=== PATIENT | male | born 1960 | race American Indian/Alaskan Native ===

== ENCOUNTER 2019-05-17 11:28 | Emergency (ER) | payer MEDICAID ==
[2019-05-17 11:35] VITALS: BP 122/89
--- NOTE | 2019-05-17 11:38 | Event Note ---
ED Screening Note Date of service: 05/17/19 Time: 11:35 ED Screening Note: This is a 58 y.o. M. that presents to the ER with n/v and dizziness since last night. Reports a headache Patient reports smoking a different brand cigarette last night and started feeling sick while smoking. This initial assessment/diagnostic orders/clinical plan/treatment(s) is/are subject to change based on patients health status, clinical progression and re- assessment by fellow clinical providers in the ED. Further treatment and workup at subsequent clinical providers discretion. Patient/guardian urged not to elope from the ED as their condition may be serious if not clinically assessed and managed. Initial orders include: Labs
[2019-05-17] MEDS ORDERED: ZOFRAN IV ONE (11:59)
[2019-05-17] MEDS ORDERED: NACL 0.9% 1000 ML 1,000 ML IV ONE (11:59)
[2019-05-17] MEDS ORDERED: ANTIVERT PO ONE (11:59)
[2019-05-17 12:20] LABS: Basophils % (Auto) 0.7 % (0.0-1.8); Eosinophils # (Auto) 0.1 K/mm3 (0.0-0.4); Hematocrit 44.2 % (35.5-45.6); Hemoglobin 14.8 gm/dl (11.8-15.2); Lymphocytes # (Auto) 1.1 K/mm3 (1.2-5.4); Lymphocytes % (Auto) 27.4 % (13.4-35.0); Mean Corpuscular HGB Conc 34 % (32-34); Mean Corpuscular Volume 91 fl (84-94); Monocytes # (Auto) 0.4 K/mm3 (0.0-0.8); Monocytes % (Auto) 10.3 % (0.0-7.3); Platelet Count 272 K/mm3 (140-440); Red Blood Count 4.85 M/mm3 (3.65-5.03); Red Cell Distribution Width 14.1 % (13.2-15.2)
[2019-05-17 12:42] LABS: Alanine Aminotransferase 20 units/L (7-56); Albumin 3.6 g/dL (3.9-5); BUN/Creatinine Ratio 7; Blood Urea Nitrogen 8 mg/dL (9-20); Calcium 8.7 mg/dL (8.4-10.2); Hemolysis Index 16
--- NOTE | 2019-05-17 14:41 | Cat Scan Report ---
CT HEAD WITHOUT CONTRAST INDICATION: vertigo with unsteady gait. TECHNIQUE: All CT scans at this location are performed using CT dose reduction for ALARA by means of automated e xposure control. COMPARISON: None available. FINDINGS: HEMORRHAGE: None. EXTRA-AXIAL SPACES: Normal in size and morphology for the patient's age. VENTRICULAR SYSTEM: Normal in size and morphology for the patient's age. BRAIN PARENCHYMA: No acute findings. MIDLINE SHIFT OR HERNIATION: None. ORBITS: Normal as visualized. SOFT TISSUES OF HEAD: Normal. CALVARIUM: Normal. VISUALIZED PARANASAL SINUSES AND MASTOID AIR CELLS: Clear. ADDITIONAL FINDINGS: None. IMPRESSION: 1. No acute intracranial abnormality. Signer Name: Ronaldo Ribera MD Signed: 05/17/2019 2:36 PM Workstation Name: [id number]
--- NOTE | 2019-05-17 15:22 | Emergency Department Report ---
ED General Adult HPI - General Chief complaint: Nausea/Vomiting/Diarrhea Stated complaint: VOMITING/DIZZINESS Time Seen by Provider: 05/17/19 11:35 Source: patient, EMS Mode of arrival: Wheelchair Limitations: No Limitations - History of Present Illness Initial comments: Patient is a [id number] who does have a history of alcohol abuse who is presenting with dizziness and nausea vomiting. States whenever he stands or moves he gets very dizzy as a spinning-like sensation with nausea and vomiting. Patient states she's had similar symptoms before but he rest for couple hours it would get better he states the symptoms have been present for 2 days straight today. Patient states he has difficulty walking secondary to the dizziness. Patient denies any weakness to his arms or legs. He denies any slurred speech. - Related Data Previous Rx's Medication Instructions Recorded Last Taken Type Meclizine [Antivert] 25 mg PO TID PRN #12 tablet 05/17/19 Unknown Rx Ondansetron [Zofran Odt] 4 mg PO Q8HR #10 tab.rapdis 05/17/19 Unknown Rx Allergies Allergy/AdvReac Type Severity Reaction Status Date / Time No Known Allergies Allergy Unverified 05/17/19 11:31 ED Review of Systems ROS: Stated complaint: VOMITING/DIZZINESS Other details as noted in HPI Comment: All other systems reviewed and negative ED Past Medical Hx - Past Medical History Previous Medical History?: No - Surgical History Past Surgical History?: No - Social History Smoking Status: Current Every Day Smoker Substance Use Type: Alcohol - Medications Home Medications: Home Medications Medication Instructions Recorded Confirmed Last Taken Type Meclizine [Antivert] 25 mg PO TID PRN #12 tablet 05/17/19 Unknown Rx Ondansetron [Zofran Odt] 4 mg PO Q8HR #10 tab.rapdis 05/17/19 Unknown Rx ED Physical Exam - General Limitations: No Limitations General appearance: alert, in no apparent distress - Head Head exam: Present: atraumatic, normocephalic - Eye Eye exam: Present: normal appearance - ENT ENT exam: Present: mucous membranes moist - Neck Neck exam: Present: normal inspection - Respiratory Respiratory exam: Present: normal lung sounds bilaterally. Absent: respiratory distress, wheezes, rales, rhonchi, stridor - Cardiovascular Cardiovascular Exam: Present: regular rate, normal rhythm. Absent: systolic murmur, diastolic murmur, rubs, gallop - GI/Abdominal GI/Abdominal exam: Present: soft, normal bowel sounds. Absent: distended, tenderness, guarding, rebound - Rectal Rectal exam: Present: deferred - Extremities Exam Extremities exam: Present: normal inspection - Back Exam Back exam: Present: normal inspection - Neurological Exam Neurological exam: Present: alert, oriented X3, reflexes normal. Absent: motor sensory deficit - Psychiatric Psychiatric exam: Present: normal affect, normal mood - Skin Skin exam: Present: warm, dry, intact, normal color. Absent: rash ED Course Vital Signs 05/17/19 11:33 Temperature 98 F Pulse Rate 60 Respiratory 18 Rate Blood Pressure 122/89 O2 Sat by Pulse 98 Oximetry ED Medical Decision Making - Lab Data Result diagrams: 05/17/19 12:03 05/17/19 12:03 - Medical Decision Making H and stated initially that his nausea and dizziness were not improved with Antivert. Patient states he was unable to walk. Patient stood up from immediately looked unsteady therefore ordered a CT of the head. This symptom been present for [address] shows no acute or subacute stroke areas. No chronic stroke like territories a found either. Patient was noted walking in the hallway with a normal non-ataxic gait asking for food. CT of the head and neck with FERGUSON was canceled. Do not feel that this time the patient is having a posterior stroke. Patient's gait is actually normal. Patient will be discharged home with Zofran and Antivert be given neurology follow-up as a pre caution. Critical care attestation.: If time is entered above; I have spent that time in minutes in the direct care of this critically ill patient, excluding procedure time. ED Disposition Clinical Impression: Vertigo Disposition: DC-01 TO HOME OR SELFCARE Is pt being admited?: No Does the pt Need Aspirin: No Condition: Stable Instructions: Vertigo (ED) Referrals: SAMAN ISRAEL MD [Staff Physician] - 3-5 Days Time of Disposition: 15:23
== END 2019-05-17 15:39 | disposition home or self-care (01) ==
LOC: ED 11:28
DX: R42 Dizziness and giddiness (principal); R11.2 Nausea with vomiting, unspecified; F17.200 Nicotine dependence, unspecified, uncomplicated
CPT/HCPCS: 36415; 70450; 80053; 85025; 96361; 96374; 99284; J2405; J7030

== ENCOUNTER 2019-05-19 16:12 | Emergency (ER) | payer MEDICAID ==
[2019-05-19 17:38] VITALS: BP 139/84
--- NOTE | 2019-05-19 17:40 | Event Note ---
ED Screening Note ED Screening Note: This initial assessment/diagnostic orders/clinical plan/treatment(s) is/are subject to change based on patients health status, clinical progression and re- assessment by fellow clinical providers in the ED. Further treatment and workup at subsequent clinical providers discretion. Patient/guardian urged not to elope from the ED as their condition may be serious if not clinically assessed and managed. Initial orders include: 58yp BM states the he has significant upper arm pain that has been present for 3 days. He states that he was receiving an injection for a CT scan and it caused pain. He states that his pain is sharp and its a 10.
--- NOTE | 2019-05-19 19:49 | Emergency Department Report ---
Upper Extremity - HPI Chief Complaint: Extremity Injury, Upper Stated Complaint: LFT ARM PAIN Time Seen by Provider: 05/19/19 19:10 Other History: Patient is a 58-year-old male presents emergency room with complaints of left upper arm pain that began a couple days ago after getting an IV. There was no infiltration of the IV. He denies any fall or injury. he denies any numbness or weakness. he states he just has occasional throbbing pains. denies any PMHx or allergies to meds. ED Review of Systems ROS: Stated complaint: LFT ARM PAIN Other details as noted in HPI Comment: All other systems reviewed and negative ED Past Medical Hx - Past Medical History Previous Medical History?: No - Surgical History Past Surgical History?: No - Social History Smoking Status: Current Every Day Smoker Substance Use Type: None - Medications Home Medications: Home Medications Medication Instructions Recorded Confirmed Last Taken Type Meclizine [Antivert] 25 mg PO TID PRN #12 tablet 05/17/19 Unknown Rx Ondansetron [Zofran Odt] 4 mg PO Q8HR #10 tab.rapdis 05/17/19 Unknown Rx Naproxen [Naprosyn TAB] 500 mg PO BID PRN #14 tablet 05/19/19 Unknown Rx Upper Extremity Exam - Exam General: Vital signs noted. No distress. Alert and acting appropriately. Shoulder Exam: Yes Normal Range of Motion in Shoulder, No Shoulder Tenderness, No Clavicle Tenderness, No Shoulder Deformity, No AC Joint Tenderness Arm Exam: No Arm/Humerus Tenderness (no TTP of the entire LUE, no ecchymosis, no edema, no erythema, FROM of the entire RUE, neurovascularly intact, no signs of injury to the biceps, no increased warmth, very small prior IV stick present to the left medial upper arm, appears clean, dry, intact, no signs of infection), No Arm Deformity Elbow: Yes Normal Range of Motion in Elbow, No Elbow Tenderness, No Elbow Def ormity Forearm: No Forearm Tenderness, No Forearm Deformity, No Pain with Pronation, No Pain with Supination Wrist: Yes Normal ROM in Wrist, No Wrist Tenderness, No Wrist Deformity, No Snuffbox Tenderness, No Pain with Axial Thumb Compression Hand: Yes Normal ROM in Digit(s), No Hand Tenderness, No Hand Deformity, No Digit Tenderness, No Digit(s) Deformity, No Tendon Dysfunction CMS Exam: Yes Normal Distal Pulses, Yes Normal Capillary Refill, Yes Normal Distal Sensation, No Broken Skin ED Course Vital Signs 05/19/19 17:36 Temperature 97.7 F Pulse Rate 77 Respiratory 18 Rate Blood Pressure 139/84 [Right] O2 Sat by Pulse 97 Oximetry ED Medical Decision Making - Medical Decision Making Patient is a 58-year-old male presents emergency room with complaints of left upper arm pain that began a couple days ago after getting an IV. There was no infiltration of the IV. He denies any fall or injury. he denies any numbness or weakness. he states he just has occasional throbbing pains. denies any PMHx or allergies to meds. vitals are normal. on exam: no TTP of the entire LUE, no ecchymosis, no edema, no erythema, FROM of the entire RUE, neurovascularly intact, no signs of injury to the biceps, no increased warmth, very small prior IV stick present to the left medial upper arm, appears clean, dry, intact, no signs of infection. no signs of infection, no signs of infiltration, no signs of muscle/tendon injury. pt given prescription for naproxen. advised pt to please take medication as prescribed as needed. May use ice pack, heating pad, rest, compression of the arm. Follow-up with a primary care doctor in the next 3 days for reexamination. given a list of community resources. Return to the emergency room for any new or worsening symptoms. Critical care attestation.: If time is entered above; I have spent that time in minutes in the direct care of this critically ill patient, excluding procedure time. ED Disposition Clinical Impression: Left upper arm pain Disposition: DC-01 TO HOME OR SELFCARE Is pt being admited?: No Does the pt Need Aspirin: No Condition: Stable Additional Instructions: Please take medication as prescribed as needed. May use ice pack, heating pad, rest, compression of the arm. Follow-up with a primary care doctor in the next 3 days for reexamination. given a list of community resources. Return to the emergency room for any new or worsening symptoms. Prescriptions: Naproxen [Naprosyn TAB] 500 mg PO BID PRN #14 tablet PRN Reason: pain Referrals: [facility] [Provider Group] - 2-[address] [facility] [Outside] - 2-3 Days [facility] [Outside] - 2-3 Days Time of Disposition: 19:48 Print Language: MALAY
--- NOTE | 2019-05-19 19:51 | Vascular Lab Report ---
Duplex venous Doppler examination of the left upper extremity with spectral analysis INDICATION: IV in place 2 days ago, left upper extremity pain Veins are compressible and show flow and augmentation. I do not see evidence of deep venous thrombosi s. IMPRESSION: Negative study Signer Name: Jose Alejandro Monge MD Signed: 05/19/2019 7:46 PM Workstation Name: [id number]
== END 2019-05-19 20:09 | disposition home or self-care (01) ==
LOC: ED 16:12
DX: M79.622 Pain in left upper arm (principal); F17.200 Nicotine dependence, unspecified, uncomplicated; Z79.899 Other long term (current) drug therapy